=== PATIENT | female | born 1945 | race Caucasian/White ===

== ENCOUNTER 2020-11-22 10:20 | Outpatient (CLI) | payer BC, MEDICARE | END 2020-11-22 10:21 | disposition home or self-care (01) | LOC: RAD 10:20 | PROVIDERS: ATTEND Internal Medicine Pulmonary Disease | DX: R06.00 Dyspnea, unspecified (principal); R91.8 Other nonspecific abnormal finding of lung field; J98.6 Disorders of diaphragm | CPT/HCPCS: 71046 ==

== ENCOUNTER 2023-12-19 09:17 | Outpatient (CLI) | payer MEDICARE | END 2023-12-19 09:18 | disposition home or self-care (01) | LOC: CT 09:17 | PROVIDERS: ATTEND Family Medicine | DX: R91.1 Solitary pulmonary nodule (principal); R91.8 Other nonspecific abnormal finding of lung field | CPT/HCPCS: 36415; 71260; 82565 ==